=== PATIENT | female | born 1985 | race Caucasian/White ===

== ENCOUNTER 2024-03-06 10:11 | Outpatient (CLI) | payer OTHER ==
[2024-03-06] MEDS ORDERED: Iopamidol 370 76% 100 ML VIAL ONE (10:29)
== END 2024-03-06 10:12 | disposition home or self-care (01) ==
LOC: CSHCT 10:11
PROVIDERS: ATTEND Internal Medicine Cardiovascular Disease
DX: Q79.60 Ehlers-Danlos syndrome, unspecified (principal)
CPT/HCPCS: 71275; Q9967